=== PATIENT | female | born 1980 | race African-American/Black ===

== ENCOUNTER 2017-02-27 04:03 | Emergency (ER) | payer OTHER ==
[~2017-02-27] VITALS: Ht 152.4 cm; Wt 100.0 kg
[2017-02-27 04:17] VITALS: Ht 152.4 cm; Wt 100.0 kg
[2017-02-27] MEDS ORDERED: IBUPROFEN 600 MG TAB PO STA (04:59)
[2017-02-27] MEDS ORDERED: DIAZEPAM 5 MG TAB PO STA (04:59)
--- NOTE | 2017-02-27 06:01 | RADRPT ---
PROCEDURE: Lower extremity Doppler CLINICAL INDICATION: Leg pain TECHNIQUE: Chamorro scale and color Doppler imaging of the right lower extremity COMPARISON: None FINDINGS: There is no evidence for deep venous thrombosis of the right lower extremity. The deep veins were f ully compressible and normal augmentation was seen. No Aguero's cyst was seen. No calf vein thrombu s was seen. IMPRESSION: No evidence for right deep venous thrombosis. RPTAT: [facility] Janet Montoya Physician Date Time Electronically viewed and signed by Janet Montoya, Physician on 02/27/2017 06:01 LE/
[2017-02-27] MEDS ORDERED: ORPH100T PO (06:11)
[2017-02-27] MEDS ORDERED: IBUP-1542 PO (06:11)
--- NOTE | 2017-02-27 06:53 | ERD ---
ER Documentation Chief Complaint Chief Complaint rightl leg pain after 5 hour flight HPI This is an otherwise healthy 36-year-old female that presents to the ER for right thigh pain after a 5 hour flight which she took today. Patient states that the pain began as soon as she got off the airplane. Pain is throbbing in quality it is nonradiating, and did not take any medications for her pain. She denies any redness or swelling of her calf. She denies any chest pain, shortness of breath. Patient is not currently taking control. She has not had any recent surgeries and has never had a DVT or PE. ROS 12 point review of systems was done, all negative except per HPI. Medications Home Meds Active Scripts Orphenadrine Citrate (Norflex) 100 Mg Tablet.sa, 100 MG PO BID for 5 Days, TAB.SA Prov:JOE ACEVES 02/27/17 Ibuprofen* (Motrin*) 600 Mg Tab, 600 MG PO Q6, #30 TAB Prov:BHAVIK ACEVESNA C 02/27/17 Allergies Allergies: Coded Allergies: No Known Drug Allergies (Verified Allergy, Unknown, 02/27/17) PMhx/Soc Medical and Surgical Hx: pt denies Medical Hx, pt denies Surgical Hx Hx Alcohol Use: No Hx Substance Use: No Hx Tobacco Use: No Smoking Status: Never smoker Physical Exam Vitals Vital Signs Date Time Temp Pulse Resp B/P Pulse Ox O2 Delivery O2 Flow Rate FiO2 02/27/17 04:17 97.2 98 20 142/81 99 Physical Exam GENERAL: The patient is well developed and appropriate for usual state of health , in no apparent distress. HEENT: Atraumatic. CHEST: Clear to auscultation bilaterally. There are no rales, wheezes or rhonchi. HEART: Regular rate and rhythm. No murmurs, clicks, rubs or gallops. EXTREMITIES: . There is no peripheral clubbing, cyanosis or edema. No focal swelling or erythema. Patient is tender to palpation to the right dorsal thigh. There is no redness, swelling, warmth to the touch to the right calf. Negative Homans sign NEURO: Alert and oriented. Cranial nerves II through XII are intact. Motor strength in all 4 extremities with 5/5 strength. Sensation grossly intact. Normal speech and gait. SKIN: There is no apparent rash or petechia. The skin is warm and dry. Results 24 hrs Current Medications Medications (Trade) Dose Ordered Sig/Charles Route PRN Reason Start Time Stop Time Status Last Admin Dose Admin Ibuprofen (Motrin) 600 mg ONCE STAT PO 02/27/17 04:59 02/27/17 05:03 DC 02/27/17 05:13 Diazepam (Valium) 10 mg ONCE STAT PO 02/27/17 04:59 02/27/17 05:03 DC 02/27/17 05:13 [place] [address] Radiology Main Line: [phone] DIAGNOSTIC IMAGING REPORT Patient: ARACELI HATCH : 1980 Age: 36 Sex: F MR #: [id number] DOS: 02/27/17 0459 Ordering MD: WILMER TOUSSAINT PA-C Location: [facility] Room/Bed: PROCEDURE: Lower extremity Doppler CLINICAL INDICATION: Leg pain TECHNIQUE: Chamorro scale and color Doppler imaging of the right lower extremity COMPARISON: None FINDINGS: There is no evidence for deep venous thrombosis of the right lower extremity. The deep veins were fully compressible and normal augmentation was seen. No Aguero's cyst was seen. No calf vein thrombus was seen. IMPRESSION: No evidence for right deep venous thrombosis. RPTAT: [facility] Physician Daniel Date Time Electronically viewed and signed by Janet Montoya Physician on 02/27/2017 06 :01 LE/ CC: WILMER TOUSSAINT PA-C Procedures/MDM This is a 36-year-old female that presents to the ER complaining of right upper thigh pain that started today after she got off a 5 hour flight. There is no evidence of calf pain, redness or swelling on physical examination and ultrasound is negative for DVT. Patient did not have any other risk factors that are concerning other than her flight. Patient's thigh pain is likely muscular in nature from sitting down for long, she will be sent home with ibuprofen and Norflex. She is to follow-up with her primary care doctor within 1-2 days return to ER sooner if symptoms worsen. My medical decision making shared with the patient she understands and agrees with plan. Departure Diagnosis: Primary Impression: Thigh pain Condition: Stable Patient Instructions: Possible Causes of Low Back or Leg Pain Additional Instructions: Call your primary care doctor TOMORROW for an appointment during the next 1-2 days.See the doctor sooner or return here if your condition worsens before your appointment time. JOE ACEVES Feb 27, 2017 06:53
== END 2017-02-27 06:57 | disposition home or self-care (01) ==
LOC: FTE 04:03
DX: M79.651 Pain in right thigh (principal)
CPT/HCPCS: 93971; 99283